=== PATIENT | female | born 1955 | race Caucasian/White ===

== ENCOUNTER 2018-01-25 11:34 | Emergency (ER) | payer MEDICAID ==
[~2018-01-25] VITALS: Ht 154.9 cm; Wt 47.7 kg
[2018-01-25] MEDS ORDERED: PERTUSS(ACELL),DIPH,TET VAC/PF 0.5 ML VIAL IM ONE (12:30)
[2018-01-25] MEDS ORDERED: SODIUM CHLORIDE 0.9% 250 ML IRRIG SOLUTION BOTTLE IRRIG ONE (12:30)
[2018-01-25 13:03] VITALS: BP 152/86
== END 2018-01-25 13:09 | disposition home or self-care (01) ==
LOC: EMS 11:35
DX: S81.851A Open bite, right lower leg, initial encounter (principal); W54.0XXA Bitten by dog, initial encounter; Y93.89 Activity, other specified; Y92.89 Other specified places as the place of occurrence of the external cause; Y99.8 Other external cause status
CPT/HCPCS: 90471; 90715

== ENCOUNTER 2018-06-27 10:05 | Emergency (ER) | payer MEDICAID ==
[~2018-06-27] VITALS: Ht 152.4 cm; Wt 47.7 kg
[2018-06-27] MEDS ORDERED: NAPR220C15 PO (10:10)
[2018-06-27 11:08] LABS: INFLUENZA TYPE A NEGATIVE FOR TYPE A (NEGATIVE); INFLUENZA TYPE B NEGATIVE FOR TYPE B (NEGATIVE)
[2018-06-27 11:20] VITALS: BP 143/87
== END 2018-06-27 11:38 | disposition home or self-care (01) ==
LOC: EMS 10:06
DX: J06.9 Acute upper respiratory infection, unspecified (principal)
CPT/HCPCS: 87804